=== PATIENT | female | born 1985 | race Caucasian/White ===

== ENCOUNTER → 2017-12-01 | Outpatient (REF) | payer BC ==
[2017-12-01 17:29] LABS: HEMOGLOBIN 12.8 g/dl (12.0-15.5); MEAN CORPUSCULAR HEMOGLOBIN 28.4 pg (27.0-33.0); MEAN CORPUSCULAR HGB CONC 32.8 g/dl (32.0-36.5); MEAN CORPUSCULAR VOLUME 86.7 fl (80.0-96.0); PLATELET COUNT, AUTOMATED 230 10^3/uL (150-450); RED CELL DISTRIBUTION WIDTH 13.3 % (11.5-14.5); WHITE BLOOD COUNT 8.7 10^3/uL (4.0-10.0)
[2017-12-01 18:05] LABS: HCG, SERUM QUANTITATIVE 110350 MIU/ML
[2017-12-02 10:42] LABS: RUBELLA IgG QUALITATIVE EQUIVOCAL (IMMUNE)
[2017-12-02 10:48] LABS: HBsAg Prenatal NEGATIVE (NEGATIVE)
[2017-12-02 11:11] LABS: HEPATITIS C VIRUS ABY INDEX 0.1 INDEX (<0.8)
[2017-12-02 11:12] LABS: HIV 1&2 SCREEN CENTAUR NEGATIVE (NEGATIVE)
== END ==
LOC: M LAB REF 16:54
DX: O36.80X0 Pregnancy with inconclusive fetal viability, not applicable or unspecified (principal); Z3A.00 Weeks of gestation of pregnancy not specified
CPT/HCPCS: 86762

== ENCOUNTER → 2018-06-01 | Outpatient (REF) | payer BC | LOC: M LAB REF 16:38 | PROVIDERS: ATTEND Obstetrics & Gynecology | DX: Z34.83 Encounter for supervision of other normal pregnancy, third trimester (principal); Z3A.00 Weeks of gestation of pregnancy not specified ==

== ENCOUNTER 2018-07-10 15:05 | Inpatient (IN) | payer BC ==
[~2018-07-10] VITALS: Ht 170.2 cm; Wt 83.4 kg
[2018-07-10] MEDS ORDERED: LR 1,000 ML IV SCH (15:32)
[2018-07-10] MEDS ORDERED: LACTATED RINGER'S 1000 ML IV STA (15:32)
[2018-07-10 15:34] VITALS: BP 142/95
[2018-07-10] MEDS ORDERED: PRENTAB9 PO (15:38)
[2018-07-10 15:40] VITALS: BP 141/80
[2018-07-10] MEDS: miSOPROStol 50 MCG 1/2 TAB (S0191) PO SCH ×2 (16:34→20:45)
[2018-07-10 16:39] VITALS: BP 132/85
[2018-07-10 16:42] LABS: HEMATOCRIT 33.6 % (36.0-47.0); HEMOGLOBIN 10.6 g/dl (12.0-15.5); MEAN CORPUSCULAR HEMOGLOBIN 26.6 pg (27.0-33.0); MEAN CORPUSCULAR HGB CONC 31.5 g/dl (32.0-36.5); MEAN CORPUSCULAR VOLUME 84.2 fl (80.0-96.0); PLATELET COUNT, AUTOMATED 154 10^3/uL (150-450); RED BLOOD COUNT 3.99 10^6/uL (4.00-5.40); WHITE BLOOD COUNT 6.8 10^3/uL (4.0-10.0)
[2018-07-10 17:43] VITALS: BP 142/90
[2018-07-10 18:31] VITALS: BP 144/88
[2018-07-11] MEDS ORDERED: OXYTOCIN 30 UNITS IN 0.9% NaCl 500ML IV BAG (J2590) As Ordered ONE (01:21)
[2018-07-11 02:03] LABS: CORD GAS ABE A -6.2; CORD GAS ABE V -5.4; CORD GAS HCO3 A 20.9 MEQ/L; CORD GAS HCO3 V 24.9 MEQ/L; CORD GAS O2 SAT A 74.1 %; CORD GAS O2 SAT V 28.1 %; CORD GAS PCO2 A 46.9 mmHg; CORD GAS PCO2 V 68.6 mmHg; CORD GAS PH A 7.267 UNITS; CORD GAS PH V 7.178 UNITS; CORD GAS PO2 A 35.1 mmHg; CORD GAS PO2 V 16.8 mmHg; CORD GAS SBC A 18.9 MEQ/L; CORD GAS SBC V 18.3 MEQ/L; CORD GAS TCO2 A 22.3 MEQ/L
[2018-07-11] MEDS ORDERED: OXYTOCIN DRIP 30 UNITS in APPROPRIATE DILUENT 1 EA IV SCH (02:03)
[2018-07-11] MEDS ORDERED: ANUSOL HC CREAM 30GM TOP PRN (02:15)
[2018-07-11] MEDS ORDERED: MEASLES,MUMPS,RUBELLA VACCINE INJ (MMR-II) (90707) SC SCH (02:15)
[2018-07-11] MEDS ORDERED: DIBUCAINE 1% OINTMENT 30GM TOP PRN (02:15)
[2018-07-11] MEDS ORDERED: IBUPROFEN 800 MG TAB PO PRN (02:15)
[2018-07-11] MEDS ORDERED: RHOGAM 300 MCG (1500 IU) INJ (J2790) IM SCH (02:15)
[2018-07-11] MEDS ORDERED: ACETAMINOPHEN 500 MG TAB PO PRN (02:15)
[2018-07-11] MEDS ORDERED: DOCUSATE SODIUM 100 MG CAP PO PRN (02:15)
[2018-07-11] MEDS ORDERED: METHYLERGONOVINE MALEATE 0.2 MG TAB PO PRN (02:15)
[2018-07-11 05:04] VITALS: BP 119/62
[2018-07-11 06:59] LABS: ALT/SGPT 11 U/L (12-78); BILIRUBIN,TOTAL 0.5 MG/DL (0.2-1.0); CREATININE FOR GFR 0.76 MG/DL (0.55-1.30); GLOMERULAR FILTRATION RATE > 60.0 (>60); LDH LACTATE DEHYDROGENASE 217 U/L (84-246); URIC ACID 5.3 MG/DL (2.6-6.0)
--- NOTE | 2018-07-11 08:02 | HPE ---
DATE OF ADMISSION: 07/10/2018 This is a 32-year-old female, 1, para 0, with an expected date of confinement (EDC) of 07/06/2018, estimated gestational age (EGA) of 40-4/7 weeks gestation who presented to labor and delivery for induction. Upon admission, no bleeding, no leakage of fluid, good movement. Her record is reviewed which was essentially unremarkable. She initiated care at approximately 9 weeks. LABS: Blood type is O+, rubella immune, hepatitis negative, HIV negative, GC and chlamydia negative. 1-hour sugar testing was within normal limits. Her GBS is negative. PAST MEDICAL HISTORY: Significant for psoriasis. PAST SURGICAL HISTORY: [place] tooth extraction. SOCIAL HISTORY: She is . Denies any alcohol or drugs. She is a former smoker. FAMILY HISTORY: Unremarkable. MEDICATIONS: vitamins ALLERGIES: NO KNOWN DRUG ALLERGIES. PHYSICAL EXAMINATION: Normal-appearing female in no acute distress. Abdomen: Soft, nontender, nondistended. Extremities: No clubbing, cyanosis or edema. Vaginal Exam: Fingertip to 1 cm dilated, 50% effaced, fetus at -3 station, vertex position. Tracing reviewed, category one tracing. ASSESSMENT: Intrauterine at 40-4/7 weeks gestation being admitted for induction. PLAN: Admit to labor and delivery. Induction process discussed with the patient in great detail. Decision made to proceed with Cytotec induction. Pain management also discussed. The patient opts for an epidural. Will continue to monitor. Anticipate delivery.
[2018-07-11] MEDS: PRENATAL VITAMINS CHEWABLE TABLET PO SCH (08:16)
--- NOTE | 2018-07-11 09:54 | DN ---
DATE: 07/11/2018 Neisha is a 32-year-old female, 1, para 0, who was admitted at 40-4/7 weeks gestation for an induction. She underwent two Cytotec with deep decelerations and 6-7 minutes of bradycardia. She then became fully dilated. She had artificial rupture of membranes, pushed and delivered a live female infant with a very tight nuchal cord that was cut on the perineum. Apgars 7 and 8. weight 7 pounds 9 ounces. Placenta delivered spontaneously intact. Three-vessel cord. A first-degree midline perineal laceration was noted which had good hemostasis. Both mother and baby in stable condition.
[2018-07-11 18:00] VITALS: BP 124/75
[2018-07-12 05:58] VITALS: BP 129/85
[2018-07-12 06:58] LABS: HEMATOCRIT 31.2 % (36.0-47.0); HEMOGLOBIN 9.8 g/dl (12.0-15.5); MEAN CORPUSCULAR HEMOGLOBIN 26.3 pg (27.0-33.0); MEAN CORPUSCULAR HGB CONC 31.4 g/dl (32.0-36.5); MEAN CORPUSCULAR VOLUME 83.9 fl (80.0-96.0); PLATELET COUNT, AUTOMATED 137 10^3/uL (150-450); RED BLOOD COUNT 3.72 10^6/uL (4.00-5.40); WHITE BLOOD COUNT 9.9 10^3/uL (4.0-10.0)
[2018-07-12] MEDS: PRENATAL VITAMINS CHEWABLE TABLET PO SCH (08:34)
[2018-07-12] MEDS ORDERED: IBUP-1114 PO (10:39)
[2018-07-12] MEDS ORDERED: MAPA500T2 PO (10:39)
== END 2018-07-12 11:50 | disposition home or self-care (01) | DRG 560 ==
LOC: M LDI 15:05 → M OBS 07-11 03:56
PROVIDERS: ADMIT Obstetrics & Gynecology; ATTEND Obstetrics & Gynecology
PROC: 3E0DXGC Introduction of Other Therapeutic Substance into Mouth and Pharynx, External Approach (ICD-10-PCS; 2018-07-10)
PROC: 10E0XZZ Delivery of Products of Conception, External Approach (ICD-10-PCS; principal; 2018-07-11)
PROC: 0HQ9XZZ Repair Perineum Skin, External Approach (ICD-10-PCS; 2018-07-11)
PROC: 10907ZC Drainage of Amniotic Fluid, Therapeutic from Products of Conception, Via Natural or Artificial Opening (ICD-10-PCS; 2018-07-11)
DX: O48.0 Post-term pregnancy (principal); Z37.0 Single live birth; Z3A.40 40 weeks gestation of pregnancy; O69.89X0 Labor and delivery complicated by other cord complications, not applicable or unspecified; O70.0 First degree perineal laceration during delivery